=== PATIENT | male | born 1990 | race Caucasian/White ===

== ENCOUNTER 2023-06-03 21:40 | Emergency (ER) | payer SELFPAY ==
[~2023-06-03] VITALS: Ht 180.3 cm; Wt 72.6 kg
[2023-06-03] MEDS ORDERED: MORPHINE 4 MG INJ. 4 MG/ML VIAL IM ONE (21:45)
[2023-06-03] MEDS ORDERED: KETOROLAC TROMETHAMINE 60 MG/2 ML VIAL IM ONE (21:45)
[2023-06-03 22:11] VITALS: BP_SYST 145; PULSE 78; RESP 16; TEMP 97.7; O2SAT 98
[2023-06-04] MEDS ORDERED: NAPR-690 PO (01:30)
[2023-06-04 02:05] VITALS: BP_SYST 122; PULSE 80; RESP 18; O2SAT 99
== END 2023-06-04 01:45 | disposition home or self-care (01) ==
LOC: SED 21:40
DX: S33.9XXA Sprain of unspecified parts of lumbar spine and pelvis, initial encounter (principal); Z79.899 Other long term (current) drug therapy; X50.0XXA Overexertion from strenuous movement or load, initial encounter; Y93.89 Activity, other specified; Y92.89 Other specified places as the place of occurrence of the external cause; Y99.8 Other external cause status
CPT/HCPCS: 99284; 96372; J1885; J2270